=== PATIENT | female | born 1985 | race Caucasian/White ===

== ENCOUNTER → 2018-10-06 14:03 | Outpatient (CLI) | payer OTHER, SELFPAY ==
[2018-10-06 15:59] LABS: Rubella Antibody IgG 7.9 IU/mL (>15)
[2018-10-08 14:32] LABS: Hepatitis B Surf Ab Qualitativ Nonreactive (Nonreactive)
== END ==
PROVIDERS: PCP Family Medicine; Visit Provider Family Medicine
DX: Z01.84 Encounter for antibody response examination (principal)
CPT/HCPCS: 36415; 86706; 86735; 86762; 86765

== ENCOUNTER → 2019-12-11 11:27 | Outpatient (CLI) | payer OTHER, SELFPAY ==
[2019-12-11 11:58] LABS: Appearance Urine UA CLEAR; Bilirubin Urine UA NEGATIVE (NEGATIVE); Color Urine UA YELLOW; Glucose Urine UA NEGATIVE (Negative); Ketones Urine UA NEGATIVE (NEGATIVE); Leukocyte Esterase Urine UA NEGATIVE (NEGATIVE); Nitrite Urine UA NEGATIVE (Negative); Occult Blood Urine UA TRACE-INTACT (Negative); Protein Urine UA NEGATIVE (Negative); Specific Gravity Urine UA 1.015 (1.000-1.035); Urobilinogen Urine UA 0.2 E.U./dL (0.2)
[2019-12-11 12:01] LABS: Add Manual Diff / Slide Review NO; Basophils Absolute Auto 100 /uL (0-100); Basophils Percent Auto 0.8 % (0-2); Eosinophils Absolute Auto 200 /uL (0-450); Hematocrit 41.8 % (36-46); Hemoglobin 14.2 g/dL (12.0-16.0); Lymphocytes Absolute Auto 1900 /uL (1100-4500); Lymphocytes Percent Auto 23.8 % (25-40); Mean Corpuscular Hemoglobin 29.6 PG (26-34); Mean Corpuscular Volume 87.1 fL (80-100); Monocytes Absolute Auto 500 /uL (0-900); Monocytes Percent Auto 6.3 % (3-14); Neutrophils Absolute Auto 5300 /uL (1500-7000); Neutrophils Percent Auto 67.1 % (50-75); Platelet Count 227 X10^3/uL (150-400); Red Cell Distribution Width 12.7 % (11.6-14.8); White Blood Cell Count 7.9 X10^3/uL (4.5-11.0)
[2019-12-11 12:24] LABS: Erythrocyte Sedimentation Rate 17 MM/HR (0-20)
[2019-12-11 12:52] LABS: RBC Urine 0-1/HPF (0-5/HPF)
[2019-12-11 12:53] LABS: Bacteria Urine Few (2-10); Culture Indicated Urine Cult Not Indicated; Squamous Epithelial Cell Urine 1-5 /HPF (0-5/HPF); WBC Urine 0-1/HPF (0-5/HPF)
[2019-12-11 13:04] LABS: Alanine Aminotransferase 30 IU/L (<35); Albumin 4.2 g/dL (3.5-5.0); Albumin Globulin Ratio 1.4 (1.0-2.8); Alkaline Phosphatase 64 U/L (38-126); Amylase 53 U/L (30-110); Aspartate Aminotransferase 32 IU/L (14-36); BUN Creatinine Ratio 12.3 (6-22); Bilirubin Total 0.8 mg/dL (0.2-1.3); Blood Urea Nitrogen 7 mg/dL (7-17); C-Reactive Protein Quant 1.1 mg/dL (<1.0); Calcium 9.5 mg/dL (8.4-10.2); Carbon Dioxide 25 mmol/L (22-32); Chloride 105 mmol/L (98-107); Estimated Glomerular Filt Rate > 60.0 mL/min (>60); Glucose 98 mg/dL (70-100); HEMOLYSIS < 15 (0-50); Lipase 130 U/L (23-300); Potassium 4.2 mmol/L (3.4-5.1); Sodium 138 mmol/L (137-145); Total Protein 7.2 g/dL (6.3-8.2)
== END ==
PROVIDERS: PCP Family Medicine; Referring Provider Family Medicine; Visit Provider Family Medicine
DX: R10.9 Unspecified abdominal pain (principal)
CPT/HCPCS: 36415; 80053; 81001; 82150; 83690; 85025; 85651; 86140; 87086

== ENCOUNTER 2020-07-21 12:18 | Emergency (ER) | payer OTHER, SELFPAY ==
[2020-07-21 12:25] VITALS: BP 105/61; PULSE 82; RESP 16; TEMP 37.1; O2SAT 94; BMI 31.0
[2020-07-21 12:55] LABS: Add Manual Diff / Slide Review NO; Basophils Absolute Auto 100 /uL (0-100); Eosinophils Absolute Auto 0 /uL (0-450); Eosinophils Percent Auto 0.7 % (2-4); Hematocrit 42.8 % (36-46); Hemoglobin 14.6 g/dL (12.0-16.0); Lymphocytes Absolute Auto 1200 /uL (1100-4500); Lymphocytes Percent Auto 18.3 % (25-40); Mean Corpuscular HGB Conc 34.2 % (30-36); Mean Corpuscular Hemoglobin 29.6 PG (26-34); Mean Corpuscular Volume 86.6 fL (80-100); Monocytes Absolute Auto 300 /uL (0-900); Monocytes Percent Auto 4.2 % (3-14); Neutrophils Absolute Auto 5100 /uL (1500-7000); Neutrophils Percent Auto 75.8 % (50-75); Platelet Count 237 X10^3/uL (150-400); Red Blood Cell Count 4.94 X10^6/uL (4.0-5.2); Red Cell Distribution Width 12.8 % (11.6-14.8); White Blood Cell Count 6.8 X10^3/uL (4.5-11.0)
[2020-07-21 13:01] LABS: INR 1.1 (0.9-1.3); Prothrombin Time 12.7 SECONDS (10.1-12.7)
[2020-07-21 13:03] LABS: PTT Partial Thromboplastin Tim 31 SECONDS (26.4-36.2)
[2020-07-21] MEDS: PANTOPRAZOLE 40 MG VIAL IV (13:04)
[2020-07-21] MEDS: ONDANSETRON 4 MG/2 ML INJ IV (13:04)
[2020-07-21 13:08] LABS: Lactate (Lactic Acid) 1.5 mmol/L (0.7-2.1)
[2020-07-21 13:09] LABS: Alanine Aminotransferase 26 IU/L (<35); Albumin 4.4 g/dL (3.5-5.0); Albumin Globulin Ratio 1.3 (1.0-2.8); Alkaline Phosphatase 76 U/L (38-126); Aspartate Aminotransferase 29 IU/L (14-36); BUN Creatinine Ratio 16.9 (6-22); Bilirubin Total 1.3 mg/dL (0.2-1.3); Blood Urea Nitrogen 10 mg/dL (7-17); Calcium 9.9 mg/dL (8.4-10.2); Carbon Dioxide 27 mmol/L (22-32); Chloride 104 mmol/L (98-107); Estimated Glomerular Filt Rate > 60.0 mL/min (>60); Globulin 3.3 g/dL (1.7-4.1); Glucose 123 mg/dL (70-100); HEMOLYSIS < 15 (0-50); Potassium 3.9 mmol/L (3.4-5.1); Sodium 138 mmol/L (137-145); Total Protein 7.7 g/dL (6.3-8.2)
--- NOTE | 2020-07-21 13:19 | ED_ITS ---
HPI - GI Bleed <Chrsitopher Colón [facility] - Last Filed: 07/21/20 13:54> General Chief complaint: GI Bleed Stated complaint: Diarrhea,Nothing But Blood Comes Out, Cramps Time Seen by Provider: 07/21/20 12:23 Source: patient Mode of arrival: Ambulatory Limitations: no limitations History of Present Illness HPI Narrative: This is a 35 year female, nonsmoker, who medical history significant for bilateral tubal ligation presents to ED with chief complain of bright red rectal bleeding. Patient reports onset of bleed started at 4:15 a.m. this morning with large amount of rectal bleeding since then had a small amount possibly 1 tsp each time of additional rectal bleeding total 10 about 10 times so far. Patient reports low abdominal cramping pain but denies fever, vomiting, chest pain, dyspnea, lightheadedness. She reports pain as 2/10. Patient reports intermittent nausea and chills. LMP about 2 weeks ago. Patient denies urinary symptoms. Patient denies history of gastric ulcers, routine use of NSAIDs, foreign travels, eating unusual foods, working in farm or camping and drinking untreated water. Denies history of colonoscopy in the past. Patient denies eating food that could this color stool. Related Data Home Medications Medication Instructions Recorded Confirmed No Known Home Medications 12/11/19 Allergies Allergy/AdvReac Type Severity Reaction Status Date / Time OMALLEY PEPPERS Allergy Unknown Uncoded 12/11/19 10:58 Review of Systems <Christopher ParikhAn [facility] - Last Filed: 07/21/20 13:54> Review of Systems Narrative: General: See HPI HEENT: Denies sinus pain, ear pain, sore throat, difficulty swallowing, dizziness. Respiratory: Denies dyspnea, cough, wheezing, hemoptysis, sputum. Cardiovascular: Denies chest pain, palpitations, orthopnea, edema. Gastrointestinal: See HPI : Denies dysuria, frequency, incontinence, hematuria, urinary retention. Musculoskeletal: Denies weakness, joint pain or bony pain. Skin: Denies rash, skin lesions, or other. Neurologic: Denies weakness, headache, numbness, change in speech, confusion, seizures, incoordination. Psychiatric: No concerning psychosocial issues. 12-point review of systems is negative except for those stated above. Patient History <Christopher Colón [facility] - Last Filed: 07/21/20 13:54> Surgical History Status post tubal ligation (11/25/15) Social History Smoking Status: Never smoker Smoking Status: Never smoker alcohol intake frequency: holidays/special occasions only Substance Use Type: does not use Exam <ELLE Haque - Last Filed: 07/21/20 13:54> Narrative Exam Narrative: GEN: Alert, oriented x 3, well appearing and nourished, and in no acute distress. Head: Normal cephalic, atraumatic. No scalp or temporal tenderness, palpable mass or rash. EYES: Pupils are equal, round, and reactive to light and accommodation. Extraocular muscles are intact bilaterally. There is no subconjunctival hemorrhage, exudate and sclera non-icteric. ENT: Hearing grossly intact. Nose without bleeding, purulent discharge or deviation. Mucous membrane dry, no mucosal lesion. Throat without erythema, tonsillar hypertrophy or exudate. Uvula in midline, airway patent. Neck: Trachea in midline. No JVD, non-tender without lymphadenopathy. No masses or thyroid megaly. Supple, non-tender and no meningeal signs. CARDIAC: Normal regular rate and rhythm without murmurs, gallops, or rubs. No chest wall tenderness. No peripheral edema, cyanosis or pallor. Capillary refill is less than 2 seconds. RESPIRATORY: Lungs are clear to auscultate bilaterally. No cough, wheezes, rales, or rhonchi. No stridor, respiratory distress, increase work of breathing, or accessary muscle used. ABD: Abdomen soft, nontender and non-distended. No guarding or rebound tenderness to palpate. Bowel sounds are normal in all 4 quadrants. There is no palpable masses or organomegaly. External hemorrhoids without fissure noticed. No internal rectal mass or hemorrhoid appreciated. Chaperoned by Jes Kunz. No visible stool obtained per rectal exam and Hemoccult negative. EXT: Full painless ROM of all extremities with no loss of sensation, strength, effusion or edema. SKIN: Warm, dry, normal color for patient. No erythema, lesions or rash over visible areas. BACK: Nontender without deformity or crepitance. No flank tenderness. NEUROLOGICAL: Alert and oriented to place, time and person. Sensation and motor function intact bilaterally. No facial droops, dysphasia. PSYCHIATRIC: Good judgement and reason, without hallucinations, abnormal affect or abnormal behaviors during the examination. Patient is not suicidal. Initial Vital Signs Initial Vital Signs: Vital Signs Temperature 98.7 F 07/21/20 12:25 Pulse Rate 82 07/21/20 12:25 Respiratory Rate 16 07/21/20 12:25 Blood Pressure 105/61 07/21/20 12:25 Pulse Oximetry 94 07/21/20 12:25 <Frakno Jennings DO - Last Filed: 07/21/20 14:39> Initial Vital Signs Initial Vital Signs: Vital Signs Temperature 98.7 F 07/21/20 12:25 Pulse Rate 82 07/21/20 12:25 Respiratory Rate 16 07/21/20 12:25 Blood Pressure 105/61 07/21/20 12:25 Pulse Oximetry 94 07/21/20 12:25 Scores <ELLE Haque - Last Filed: 07/21/20 13:54> GCS Roosevelt coma scale eye opening: Spontaneous Roosevelt coma scale verbal response: Orientated Roosevelt coma scale motor response: Obey commands Nikki coma scale total score: 15 qSOFA Altered Mental Status (GCS <15): No Respiratory rate greater than/equal to 22: No Systolic blood pressure less than or equal to 100: No qSOFA Total: 0 0-1 Not High Risk 1-3 High risk Course <ELLE Haque - Last Filed: 07/21/20 13:54> Orders Ordered: ED Orders 07/21/20 12:35 EKG-12 Lead Stat 07/21/20 12:40 Complete Blood Count AUTO DIFF Stat Comprehensive Metabolic Panel Stat Lactate (Lactic Acid) Stat Partial Thromboplastin Time Stat Prothrombin Time INR Stat Type and Screen Stat Discontinued Medications Sodium Chloride (Normal Saline 0.9%) 500 mls @ 1,000 mls/hr IV BOLUS ONE Stop: 07/21/20 13:55 Last Admin: 07/21/20 13:41 Dose: Not Given Documented by: RSTONE Ondansetron HCl (Ondansetron 4 Mg/2 Ml Inj) 4 mg IV NOW ONE Stop: 07/21/20 12:43 Last Admin: 07/21/20 13:04 Dose: 4 mg Documented by: MONIK Pantoprazole Sodium (Pantoprazole 40 Mg Vial) 40 mg IV NOW ONE Stop: 07/21/20 12:43 Last Admin: 07/21/20 13:04 Dose: 40 mg Documented by: MONIK Reevaluation(s) Reevaluation #1: Patient had about tea spoonful bright red/pink color soft bowel movement in a hat but the sample was mixed with urine sample and unable to send to the lab. Patient provided with head and urine cup if patient could provide stool sample when she goes home. Time: 13:44 Vital Signs Vital signs: Vital Signs - 8 hr 07/21/20 12:25 07/21/20 14:21 Temperature 98.7 F Pulse Rate 82 70 Respiratory Rate 16 Blood Pressure 105/61 111/70 Pulse Oximetry 94 99 <Franko Jennings DO - Last Filed: 07/21/20 14:39> Orders Ordered: ED Orders 07/21/20 12:35 EKG-12 Lead Stat 07/21/20 12:40 Complete Blood Count AUTO DIFF Stat Comprehensive Metabolic Panel Stat Lactate (Lactic Acid) Stat Partial Thromboplastin Time Stat Prothrombin Time INR Stat Type and Screen Stat Discontinued Medications Sodium Chloride (Normal Saline 0.9%) 500 mls @ 1,000 mls/hr IV BOLUS ONE Stop: 07/21/20 13:55 Last Admin: 07/21/20 13:41 Dose: Not Given Documented by: MONIK Ondansetron HCl (Ondansetron 4 Mg/2 Ml Inj) 4 mg IV NOW ONE Stop: 07/21/20 12:43 Last Admin: 07/21/20 13:04 Dose: 4 mg Documented by: MONIK Pantoprazole Sodium (Pantoprazole 40 Mg Vial) 40 mg IV NOW ONE Stop: 07/21/20 12:43 Last Admin: 07/21/20 13:04 Dose: 40 mg Documented by: MONIK Vital Signs Vital signs: Vital Signs - 8 hr 07/21/20 12:25 07/21/20 14:21 Temperature 98.7 F Pulse Rate 82 70 Respiratory Rate 16 Blood Pressure 105/61 111/70 Pulse Oximetry 94 99 MDM - GI Bleed <ELLE Haque - Last Filed: 07/21/20 13:54> Differential Diagnosis Differential diagnosis: Likely hemorrhoids, infectious diarrhea, Lower gastroint estinal hemorrhage, anal fissure and other (colitis, colon polyps) Medical Records Attestation: I reviewed the patient's medical records. Lab Data Attestation: I reviewed the patient's lab results. Result diagrams: 07/21/20 12:40 07/21/20 12:40 Labs: Lab Results 07/21/20 07/21/20 07/21/20 Range/Units 12:40 12:40 12:40 WBC 6.8 (4.5-11.0) X10^3/uL RBC 4.94 (4.0-5.2) X10^6/uL Hgb 14.6 (12.0-16.0) g/dL Hct 42.8 (36-46) % MCV 86.6 (80-100) fL MCH 29.6 (26-34) PG MCHC 34.2 (30-36) % RDW 12.8 (11.6-14.8) % Plt Count 237 (150-400) X10^3/uL Neut % (Auto) 75.8 H (50-75) % Lymph % (Auto) 18.3 L (25-40) % [place] % (Auto) 4.2 (3-14) % Eos % (Auto) 0.7 L (2-4) % Baso % (Auto) 1.0 (0-2) % Neut # (Auto) 5100 (5400-4676) /uL Lymph # (Auto) 1200 (0575-1005) /uL [place] # (Auto) 300 (0-900) /uL Eos # (Auto) 0 (0-450) /uL Baso # (Auto) 100 (0-100) /uL PT 12.7 (10.1-12.7) SECONDS INR 1.1 (0.9-1.3) APTT 31 (26.4-36.2) SECONDS Sodium 138 (137-145) mmol/L Potassium 3.9 (3.4-5.1) mmol/L Chloride 104 (98-107) mmol/L Carbon Dioxide 27 (22-32) mmol/L BUN 10 (7-17) mg/dL Creatinine 0.59 (0.52-1.04) mg/dL Estimated GFR > 60.0 (>60) mL/min BUN/Creatinine Ratio 16.9 (6-22) Glucose 123 H (70-100) mg/dL Lactate (0.7-2.1) mmol/L Calcium 9.9 (8.4-10.2) mg/dL Total Bilirubin 1.3 (0.2-1.3) mg/dL AST 29 (14-36) IU/L ALT 26 (<35) IU/L Alkaline Phosphatase 76 (38-126) U/L Total Protein 7.7 (6.3-8.2) g/dL Albumin 4.4 (3.5-5.0) g/dL Globulin 3.3 (1.7-4.1) g/dL Albumin/Globulin Ratio 1.3 (1.0-2.8) Blood Type Antibody Screen 07/21/20 07/21/20 Range/Units 12:40 12:40 WBC (4.5-11.0) X10^3/uL RBC (4.0-5.2) X10^6/uL Hgb (12.0-16.0) g/dL Hct (36-46) % MCV (80-100) fL MCH (26-34) PG MCHC (30-36) % RDW (11.6-14.8) % Plt Count (150-400) X10^3/uL Neut % (Auto) (50-75) % Lymph % (Auto) (25-40) % [place] % (Auto) (3-14) % Eos % (Auto) (2-4) % Baso % (Auto) (0-2) % Neut # (Auto) (9939-1609) /uL Lymph # (Auto) (4317-7530) /uL [place] # (Auto) (0-900) /uL Eos # (Auto) (0-450) /uL Baso # (Auto) (0-100) /uL PT (10.1-12.7) SECONDS INR (0.9-1.3) APTT (26.4-36.2) SECONDS Sodium (137-145) mmol/L Potassium (3.4-5.1) mmol/L Chloride (98-107) mmol/L Carbon Dioxide (22-32) mmol/L BUN (7-17) mg/dL Creatinine (0.52-1.04) mg/dL Estimated GFR (>60) mL/min BUN/Creatinine Ratio (6-22) Glucose (70-100) mg/dL Lactate 1.5 (0.7-2.1) mmol/L Calcium (8.4-10.2) mg/dL Total Bilirubin (0.2-1.3) mg/dL AST (14-36) IU/L ALT (<35) IU/L Alkaline Phosphatase (38-126) U/L Total Protein (6.3-8.2) g/dL Albumin (3.5-5.0) g/dL Globulin (1.7-4.1) g/dL Albumin/Globulin Ratio (1.0-2.8) Blood Type A Positive Antibody Screen Negative Point of Care Testing Test Results Negative Urine Dip Bedside Urine Glucose Negative Bedside Urine Bilirubin - Negative Bedside Urine Ketone - Negative Urine Specific [place] 1.020 Bedside Urine Occult Blood - Negative Bedside Urine pH 7.5 Bedside Urine Protein - Negative Bedside Urine Urobilinogen - Negative Bedside Urine Nitrite - Negative Bedside Urine Leukocytes - Negative Esterase ECG Data Attestation: I personally reviewed and interpreted this ECG as follows: Prior ECG tracings: not available for review Interpretation: Sinus rhythm rate at 79. Normal axis. TX interval 170, QRS duration 80, QT/QTC 390/[address] changes MDM Narrative Medical decision making narrative: Physical exam is unremarkable. No significant abdominal pain with the palpation. Labs are assuring. No leukocytosis, or lactate elevation. Normal coag test. Chemistry unremarkable except slightly elevated nonfasting glucose. Urine test does not Indicate infection and urine test was negative. Appreciated several small size external hemorrhoids without obvious fissures or bleeding. Stool was not appreciated in rectal vault and hemoccult was done but negative test. Patient attempted to provide stool sample after the exam and there was about a teaspoonful pink mucousy stool mixed in a specimen hat mixed with the urine. Lab could not accept the sample. Stool culture, O&P, GI panel ordered and patient will try to [place] the sample later. Given patient is hemodynamically stable without acute abdominal pain or indications for infection, in shared decision making, patient will be follow-up with primary care physician in outpatient setting with possible colonoscopy and further evaluation. Patient advised to provide stool sample if this is possible which can be followed up by primary care physician as well. She declined Bentyl for cramping discomfort. Return precautions were discussed with patient she verbalized understanding in agreement with the treatment plan. <Franko Jennings, DO - Last Filed: 07/21/20 14:39> Lab Data Labs: Lab Results 07/21/20 07/21/20 07/21/20 Range/Units 12:40 12:40 12:40 WBC 6.8 (4.5-11.0) X10^3/uL RBC 4.94 (4.0-5.2) X10^6/uL Hgb 14.6 (12.0-16.0) g/dL Hct 42.8 (36-46) % MCV 86.6 (80-100) fL MCH 29.6 (26-34) PG MCHC 34.2 (30-36) % RDW 12.8 (11.6-14.8) % Plt Count 237 (150-400) X10^3/uL Neut % (Auto) 75.8 H (50-75) % Lymph % (Auto) 18.3 L (25-40) % [place] % (Auto) 4.2 (3-14) % Eos % (Auto) 0.7 L (2-4) % Baso % (Auto) 1.0 (0-2) % Neut # (Auto) 5100 (2990-2879) /uL Lymph # (Auto) 1200 (1446-1373) /uL [place] # (Auto) 300 (0-900) /uL Eos # (Auto) 0 (0-450) /uL Baso # (Auto) 100 (0-100) /uL PT 12.7 (10.1-12.7) SECONDS INR 1.1 (0.9-1.3) APTT 31 (26.4-36.2) SECONDS Sodium 138 (137-145) mmol/L Potassium 3.9 (3.4-5.1) mmol/L Chloride 104 (98-107) mmol/L Carbon Dioxide 27 (22-32) mmol/L BUN 10 (7-17) mg/dL Creatinine 0.59 (0.52-1.04) mg/dL Estimated GFR > 60.0 (>60) mL/min BUN/Creatinine Ratio 16.9 (6-22) Glucose 123 H (70-100) mg/dL Lactate (0.7-2.1) mmol/L Calcium 9.9 (8.4-10.2) mg/dL Total Bilirubin 1.3 (0.2-1.3) mg/dL AST 29 (14-36) IU/L ALT 26 (<35) IU/L Alkaline Phosphatase 76 (38-126) U/L Total Protein 7.7 (6.3-8.2) g/dL Albumin 4.4 (3.5-5.0) g/dL Globulin 3.3 (1.7-4.1) g/dL Albumin/Globulin Ratio 1.3 (1.0-2.8) Blood Type Antibody Screen 07/21/20 07/21/20 Range/Units 12:40 12:40 WBC (4.5-11.0) X10^3/uL RBC (4.0-5.2) X10^6/uL Hgb (12.0-16.0) g/dL Hct (36-46) % MCV (80-100) fL MCH (26-34) PG MCHC (30-36) % RDW (11.6-14.8) % Plt Count (150-400) X10^3/uL Neut % (Auto) (50-75) % Lymph % (Auto) (25-40) % [place] % (Auto) (3-14) % Eos % (Auto) (2-4) % Baso % (Auto) (0-2) % Neut # (Auto) (2538-8048) /uL Lymph # (Auto) (5137-6083) /uL [place] # (Auto) (0-900) /uL Eos # (Auto) (0-450) /uL Baso # (Auto) (0-100) /uL PT (10.1-12.7) SECONDS INR (0.9-1.3) APTT (26.4-36.2) SECONDS Sodium (137-145) mmol/L Potassium (3.4-5.1) mmol/L Chloride (98-107) mmol/L Carbon Dioxide (22-32) mmol/L BUN (7-17) mg/dL Creatinine (0.52-1.04) mg/dL Estimated GFR (>60) mL/min BUN/Creatinine Ratio (6-22) Glucose (70-100) mg/dL Lactate 1.5 (0.7-2.1) mmol/L Calcium (8.4-10.2) mg/dL Total Bilirubin (0.2-1.3) mg/dL AST (14-36) IU/L ALT (<35) IU/L Alkaline Phosphatase (38-126) U/L Total Protein (6.3-8.2) g/dL Albumin (3.5-5.0) g/dL Globulin (1.7-4.1) g/dL Albumin/Globulin Ratio (1.0-2.8) Blood Type A Positive Antibody Screen Negative Point of Care Testing Test Results Negative Urine Dip Bedside Urine Glucose Negative Bedside Urine Bilirubin - Negative Bedside Urine Ketone - Negative Urine Specific [place] 1.020 Bedside Urine Occult Blood - Negative Bedside Urine pH 7.5 Bedside Urine Protein - Negative Bedside Urine Urobilinogen - Negative Bedside Urine Nitrite - Negative Bedside Urine Leukocytes - Negative Esterase Discharge Plan Departure Patient Disposition: Home Clinical Impression: Bright red rectal bleeding Hemorrhoids Qualifiers: Hemorrhoid type: unspecified Qualified Code(s): K64.9 - Unspecified hemorrhoids Instructions: DI for Hemorrhoids, DI for Rectal Bleeding Activity Restrictions/Additional Instructions: You have been diagnosed with [bright red rectal bleed. You also have a few of external hemorrhoids. Today's labs are assuring. Physical exam is unremarkable and imaging test was deferred. You can drop of stool sample at the lab after the registration is completed. The result can be followed up with your primary care physician when you follow-up.]. What to do: *Take your medications as directed. You can take [id number] Tylenol as needed for discomfort. Hydrate adequately. *Follow up with your primary care provider in 2-3 days, call for an appointment. Let them know you were seen in the ED and that we asked you to be seen in follow up. *Return to ED if you have any new, worsening, or concerning symptoms, such as [fever, worsening abdominal pain, increasing rectal bleeding, chest pain, breathing difficulty, lightheadedness, unable to tolerate fluids or any acute concerns]. Prescriptions: No Action No Known Home Medications RF: 0 Referrals: Michael Jean MD [Primary Care Provider] - <Franko Jennings DO - Last Filed: 07/21/20 14:39> Cosign ED Attending Cosignature Attestation: Dr Jennings Co-Sign Statement: I was available for consultation during this patient's emergency department visit. This chart is signed by myself for administrative purposes only. I did not have direct contact with this patient during this visit. They were seen independently by the APC.
[2020-07-21 14:21] VITALS: BP 111/70; PULSE 70; O2SAT 99
== END 2020-07-21 14:23 | disposition home or self-care (01) ==
PROVIDERS: Emergency Provider Nurse Practitioner Family; PCP Family Medicine
DX: K62.5 Hemorrhage of anus and rectum (principal); K64.9 Unspecified hemorrhoids
CPT/HCPCS: 36415; 80053; 81003; 81025; 83605; 85025; 85610; 85730; 86850; 86900; 86901; 93005; 93010; 96374; 96375; 99282; 99284; C9113; J2405

== ENCOUNTER 2023-04-25 02:43 | Emergency (ER) | payer OTHER, SELFPAY ==
[2023-04-25] VITALS (7 sets, daily range): BP systolic 101–121; BP diastolic 57–83; PULSE 84–107; RESP 18; TEMP 36.1; O2SAT 96–99; BMI 35.9
--- NOTE | 2023-04-25 02:48 | ED.GENADULT ---
HPI - General Adult General Chief complaint: Abdominal Pain Stated complaint: ABD PAIN Time Seen by Provider: 04/25/23 02:47 History of Present Illness HPI narrative: 38-year-old female nonsmoker without chronic medical history presents with a chief complaint of 4 days of gradually worsening epigastric pain that now radiates to her back. She is nauseated with decreased appetite but denies much in the way of vomiting. She denies any fever or chills. She denies shortness of breath or cough. No runny nose, sore throat. She denies any constipation or diarrhea. She denies dysuria, frequency or urgency. She is been NPO since about 930 or 10:00 p.m. last night Related Data Previous Rx's Medication Instructions Recorded hydrocodone 5 mg-acetaminophen 325 1 tab PO Q4-6H PRN pain #10 tabs 04/25/23 mg tablet ondansetron 4 mg disintegrating 4 mg PO TID-QID PRN nausea and 04/25/23 tablet vomiting #10 tabs Allergies Allergy/AdvReac Type Severity Reaction Status Date / Time OM[facility] PEPPERS Allergy Unknown Uncoded 12/11/19 10:58 Review of Systems Review of Systems Narrative: GENERAL: Denies chills, fatigue, malaise, fever, sweats. HEENT: Denies sinus pain, ear pain, sore throat, difficulty swallowing, dizziness. RESPIRATORY: Denies dyspnea, cough, wheezing, hemoptysis, sputum. CARDIOVASCULAR: Denies chest pain, palpitations, orthopnea, edema, GASTROINTESTINAL: See HPI : Denies dysuria, frequency, incontinence, hematuria, urinary retention. MUSCULOSKELETAL: denies weakness, joint pain, or bony pain SKIN: Denies rash, skin lesions, or other NEUROLOGIC: Denies weakness, headache, numbness, change in speech, confusion, seizures, incoordination. PSYCHIATRIC: No concerning psychosocial issues. 12 point review of systems is negative except for those stated above Patient History Surgical History Status post tubal ligation (11/25/15) Social History Smoking Status: Never smoker Smoking Status: Never smoker alcohol intake frequency: holidays/special occasions only Substance Use Type: does not use Exam Narrative Exam Narrative: GENERAL: [38] year old patient appears stated age. Well-developed patient, in mild distress. HEAD: Atraumatic. Normocephalic. EYES: Pupils equal round and reactive. Extraocular motions intact. No scleral icterus. No injection or drainage. ENT: Nose without bleeding, purulent drainage. Throat without erythema, tonsillar hypertrophy or exudate. Airway patent. NECK: Trachea midline. Non tender CARDIOVASCULAR: Regular rate and rhythm without murmurs, gallops, or rubs. RESPIRATORY: Clear to auscultation. Breath sounds equal bilaterally. No wheezes, rales, or rhonchi. GASTROINTESTINAL: Abdomen soft, epigastric pain on palpation worse than right upper quadrant, nondistended. EXTREMITIES: No edema or joint tenderness. BACK: Nontender without deformity or crepitance. No flank tenderness. NEURO: AOx3. SKIN: No rash or erythema of visible areas Initial Vital Signs Initial Vital Signs: Vital Signs Temperature 97.0 F L 04/25/23 02:49 Pulse Rate 107 H 04/25/23 02:49 Respiratory Rate 18 04/25/23 02:49 Blood Pressure 121/83 04/25/23 02:49 Pulse Oximetry 99 04/25/23 02:49 Oxygen Delivery Method Room Air 04/25/23 02:49 Course Orders Ordered: ED Orders 04/25/23 02:52 US abdomen limited Stat 04/25/23 03:02 Complete Blood Count AUTO DIFF Stat Comprehensive Metabolic Panel Stat Lipase Stat Hydrocodone Bitart/Acetaminophen (Hydrocodone/Acet 5/325 Prepack) 1 bottle MISC SEEINSTR ONE Stop: 04/25/23 04:17 Discontinued Medications Sodium Chloride (Normal Saline 0.9%) 1,000 mls @ 1,000 mls/hr IV BOLUS ONE Stop: 04/25/23 03:50 Last Admin: 04/25/23 03:10 Dose: 1,000 mls/hr Documented By: SHIVA Ketorolac Tromethamine (Ketorolac 30 Mg/Ml Vial) 15 mg IV NOW ONE Stop: 04/25/23 03:56 Last Admin: 04/25/23 04:04 Dose: 15 mg Documented By: MITCHEL Consultations Consultation #1: Discussed with Dr. Jackson, general surgery. Patient appropriate for discharge, can see in office on Saturday, likely elective surgery next week. Pain control, low-fat diet Vital Signs Vital signs: Vital Signs - 8 hr 04/25/23 02:49 04/25/23 02:50 04/25/23 02:50 Temperature 97.0 F L Pulse Rate 107 H 107 H Respiratory Rate 18 Blood Pressure 121/83 121/83 Pulse Oximetry 99 99 Oxygen Delivery Method Room Air Room Air 04/25/23 03:00 04/25/23 03:30 04/25/23 03:36 Temperature Pulse Rate 100 H 84 Respiratory Rate Blood Pressure 101/57 L Pulse Oximetry 97 98 Oxygen Delivery Method Room Air Room Air 04/25/23 03:36 Temperature Pulse Rate 87 Respiratory Rate Blood Pressure Pulse Oximetry 99 Oxygen Delivery Method Room Air Medical Decision Making Lab Data 04/25/23 03:02 04/25/23 03:02 Labs: Lab Results 04/25/23 04/25/23 Range/Units 03:02 03:02 WBC 9.9 (4.5-11.0) X10^3/uL RBC 4.78 (4.0-5.2) X10^6/uL Hgb 14.4 (12.0-16.0) g/dL Hct 41.8 (36-46) % MCV 87.5 (80-100) fL MCH 30.2 (26-34) PG MCHC 34.5 (30-36) % RDW 12.6 (11.6-14.8) % Plt Count 220 (150-400) X10^3/uL Neut % (Auto) 62.7 (50-75) % Lymph % (Auto) 25.9 (25-40) % [place] % (Auto) 7.9 (3-14) % Eos % (Auto) 2.6 (2-4) % Baso % (Auto) 0.9 (0-2) % Neut # (Auto) 6200 (5803-7143) /uL Lymph # (Auto) 2600 (1548-7642) /uL [place] # (Auto) 800 (0-900) /uL Eos # (Auto) 300 (0-450) /uL Baso # (Auto) 100 (0-100) /uL Sodium 137 (137-145) mmol/L Potassium 3.6 (3.4-5.1) mmol/L Chloride 101 (98-107) mmol/L Carbon Dioxide 26 (22-32) mmol/L BUN 11 (7-17) mg/dL Creatinine 0.89 (0.52-1.04) mg/dL Estimated GFR > 60 (>60) mL/min BUN/Creatinine Ratio 12.4 (6-22) Glucose 113 H (70-100) mg/dL Calcium 9.0 (8.4-10.2) mg/dL Total Bilirubin 1.3 (0.2-1.3) mg/dL AST 45 H (14-36) IU/L ALT 44 H (<35) IU/L Alkaline Phosphatase 61 (38-126) U/L Total Protein 7.7 (6.3-8.2) g/dL Albumin 4.3 (3.5-5.0) g/dL Globulin 3.4 (1.7-4.1) g/dL Albumin/Globulin Ratio 1.3 (1.0-2.8) Lipase 329 H (23-300) U/L MDM Narrative Medical decision making narrative: [38] year old patient presents with epigastric pain with radiation to back and concern for gallbladder Multiple etiologies for patient's symptoms considered including, but not limited to: Pancreatitis versus gallbladder disease versus other [] Prior Charts reviewed in our EMR Primary Historian: patient Labs reviewed and interpreted by myself: No leukocytosis or left shift, no elevation in bilirubin though LFTs are slightly elevated in the 40s, alk-phos is normal, lipase very slightly above normal Imaging reviewed: Ultrasound demonstrates layering gallstones without evidence of cholecystitis Consultations: Discussed with on-call General surgery, see details above Patient's symptoms improved over duration of stay with above-stated therapies. Findings and discharge diagnosis discussed with patient/family followed by verbalization of understanding Return precautions discussed with patient/family whom verbalize understanding of diagnosis and plan Discharge Plan Departure Patient Disposition: Home Clinical Impression: Disease of gallbladder Instructions: Gallstones Activity Restrictions/Additional Instructions: *You have been diagnosed with [abdominal pain due to gallstones] * As we discussed your history and physical exam as well as labs and imaging are very reassuring. There is no evidence of any severe diagnoses that would require a specific or immediate intervention at this time though you will likely need an elective surgery for your gallbladder in the near future *What to do: *Please continue to take your regular medications as directed. [x ] New medication prescriptions sent to your pharmacy: [ [facility]] *Please follow up with Dr. Jackson at [facility], call for an appointment. Let them know you were seen in the Emergency Department and that we ask that you be seen in follow up. We will electronically transmit a record of today's note *Please consider a clear liquid diet for the next 24-48 hours and then slowly advance to regular as tolerated. Also, try to avoid alcohol, nicotine, caffeine, spicy, acidic or fatty foods as this may worsen your symptoms *Return to Emergency Department if you should have any new, worsening or concerning symptoms, such as [fever greater than 101 F, shaking chills, worsening pain, persistent vomiting or other bothersome symptoms] You have been prescribed a short course of narcotic medications. These are potentially dangerous and addictive medications that should be used carefully. While on these medications you cannot drive or operate heavy machinery. Additionally, you cannot sign legal documents or perform any duties such as this. 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 Please understand that we cannot provide further refills of narcotics or controlled substances through the ED and your pain management will need to be through your Primary Care Provider Prescriptions: New hydrocodone-acetaminophen 5-325 mg tablet 1 tab PO Q4-6H PRN (Reason: pain) Qty: 10 0RF ondansetron 4 mg tablet,disintegrating 4 mg PO TID-QID PRN (Reason: nausea and vomiting) Qty: 10 0RF Referrals: Michael Jean MD [Primary Care Provider] - Sonny Jackson MD [Physician] - Stand Alone Forms: Patient Portal/API
--- NOTE | 2023-04-25 02:52 | DI.US.S_ITS ---
PROCEDURE: US ABDOMEN LIMITED INDICATIONS: epigastic pain, radiation to back x days TECHNIQUE: Real-time scanning was performed of the abdominal and retroperitoneal organs, with image documentation. COMPARISON: None. FINDINGS: Liver: Liver is normal in size and homogeneous in echotexture. Gallbladder: Gallbladder is filled with gallstones. There is a positive sonographic Kennedy's sign. No wall thickening. No pericholecystic fluid. Biliary ducts: Intrahepatic bile ducts are non-dilated. Extrahepatic bile duct caliber measures 4 mm. Normal is 6-7 mm or less in diameter, or 10 mm or less post-cholecystectomy. Pancreas: Pancreas is not well visualized secondary to overlying bowel gas. Miscellaneous: No free abdominal fluid. IMPRESSION: Cholelithiasis with positive sonographic Kennedy's sign. This is consistent with acute cholecystitis. No wall thickening or pericholecystic fluid. No significant discrepancy with the scene shifter radiology preliminary report. Dictated by: Venancio Dunham M.D. on 04/25/2023 at 7:25 Approved by: Venancio Dunham M.D. on 04/25/2023 at 7:31
[2023-04-25] MEDS: SODIUM CHLORIDE 0.9% 1,000 ML 1000 ML IV (03:10)
[2023-04-25 03:13] LABS: Add Manual Diff / Slide Review NO; Basophils Absolute Auto 100 /uL (0-100); Basophils Percent Auto 0.9 % (0-2); Eosinophils Absolute Auto 300 /uL (0-450); Eosinophils Percent Auto 2.6 % (2-4); Hematocrit 41.8 % (36-46); Hemoglobin 14.4 g/dL (12.0-16.0); Lymphocytes Absolute Auto 2600 /uL (1100-4500); Lymphocytes Percent Auto 25.9 % (25-40); Mean Corpuscular HGB Conc 34.5 % (30-36); Mean Corpuscular Hemoglobin 30.2 PG (26-34); Mean Corpuscular Volume 87.5 fL (80-100); Monocytes Absolute Auto 800 /uL (0-900); Monocytes Percent Auto 7.9 % (3-14); Neutrophils Absolute Auto 6200 /uL (1500-7000); Neutrophils Percent Auto 62.7 % (50-75); Platelet Count 220 X10^3/uL (150-400); Red Blood Cell Count 4.78 X10^6/uL (4.0-5.2); Red Cell Distribution Width 12.6 % (11.6-14.8); White Blood Cell Count 9.9 X10^3/uL (4.5-11.0)
[2023-04-25 03:20] LABS: Alanine Aminotransferase 44 IU/L (<35); Albumin 4.3 g/dL (3.5-5.0); Albumin Globulin Ratio 1.3 (1.0-2.8); Alkaline Phosphatase 61 U/L (38-126); Aspartate Aminotransferase 45 IU/L (14-36); BUN Creatinine Ratio 12.4 (6-22); Bilirubin Total 1.3 mg/dL (0.2-1.3); Blood Urea Nitrogen 11 mg/dL (7-17); Carbon Dioxide 26 mmol/L (22-32); Chloride 101 mmol/L (98-107); Estimated Glomerular Filt Rate > 60 mL/min (>60); Globulin 3.4 g/dL (1.7-4.1); Glucose 113 mg/dL (70-100); HEMOLYSIS < 15 (0-50); Lipase 329 U/L (23-300); Potassium 3.6 mmol/L (3.4-5.1); Sodium 137 mmol/L (137-145); Total Protein 7.7 g/dL (6.3-8.2)
[2023-04-25] MEDS: KETOROLAC 30 MG/ML VIAL 15 MG IV (04:04)
[2023-04-25] MEDS: HYDROCODONE/ACET 5/325 PREPACK 1 BOTTLE MISC (04:28)
== END 2023-04-25 04:34 | disposition home or self-care (01) ==
PROVIDERS: Emergency Provider Emergency Medicine; PCP Family Medicine
DX: K82.9 Disease of gallbladder, unspecified (principal)
CPT/HCPCS: 36415; 76705; 80053; 83690; 85025; 96361; 96374; 99284; J1885

== ENCOUNTER → 2024-09-05 14:51 | Outpatient (CLI) | payer OTHER, SELFPAY ==
[2024-09-05 15:42] LABS: Influenza A - CEPHEID Flu A NEGATIVE (NEGATIVE); Influenza B - CEPHEID Flu B NEGATIVE (NEGATIVE); Respiratory Syncytial Virus Negative (Negative)
[2024-09-05 15:59] LABS: COVID-19 CEPHEID 4-PLEX PCR Negative (Negative)
== END ==
PROVIDERS: PCP Internal Medicine; Visit Provider Physician Assistant Medical
DX: R05.1 Acute cough (principal)
CPT/HCPCS: 0241U

== ENCOUNTER → 2024-09-05 15:13 | Outpatient (CLI) | payer OTHER, SELFPAY ==
--- NOTE | 2024-09-05 15:20 | DI.RAD.S_ITS ---
PROCEDURE: XR CHEST 2V INDICATIONS: Cough TECHNIQUE: 2 views of the chest were acquired. COMPARISON: None. FINDINGS: Surgical changes and devices: None. Lungs and pleura: An incomplete inspiratory result is noted, causing a crowded appearance to the lung markings. No focal infiltrates are seen. No pneumothorax or significant pleural effusions are seen. Mediastinum: Mediastinal contours are normal. Heart size is normal. Bones and chest wall: No suspicious bony abnormalities. Soft tissues appear unremarkable. IMPRESSION: No focal infiltrates are seen. Low lung volumes, without an acute abnormality seen by plain film. Dictated by: Fredi Joseph M.D. on 09/05/2024 at 14:40 Approved by: Fredi Joseph M.D. on 09/05/2024 at 14:40
== END ==
PROVIDERS: PCP Internal Medicine; Referring Provider Physician Assistant Medical; Visit Provider Physician Assistant Medical
DX: R05.1 Acute cough (principal)
CPT/HCPCS: 0241U; 71046